=== PATIENT | male | born 1970 | race Caucasian/White ===

== ENCOUNTER 2020-01-22 00:31 | Outpatient (CLI) | payer OTHER, SELFPAY ==
[2020-01-22 20:45] LABS: SARS-CoV-2 RNA PCR Negative
== END 2020-01-22 00:32 | disposition home or self-care (01) ==
LOC: ANHCOVIDDT 00:31
PROVIDERS: Visit Provider Internal Medicine Gastroenterology
DX: Z01.812 Encounter for preprocedural laboratory examination (principal)
CPT/HCPCS: 87635; C9803; U0003

== ENCOUNTER 2020-01-25 01:43 | Day surgery (SDC) | payer OTHER, SELFPAY ==
[2020-01-15 14:30] VITALS: BMI 28.4
[2020-01-25 11:40] VITALS: BP 152/86; PULSE 91; RESP 16; TEMP 36.1; O2SAT 100
[2020-01-25] MEDS: LACTATED RINGERS 1,000 ML 150 ML IV CONT (11:43)
--- NOTE | 2020-01-25 11:50 | WPDANESEPPF ---
Anes - Initial Pre Proc Eval Procedure: Operation Date: 01/25/20 13:00 Proposed Procedures p Esophagogastroduodenoscopy&Screen Colon - Nikos Snyder MD Date/Time: 01/25/20 11:50 Surgeon: Nikos Snyder MD Pre Op Diagnosis: Abnormal Levels Serum enzymes Patient Data Age: 49 Gender: M Height: 6 ft Weight: 95.2 kg Last Vital Signs Temp 97.0 F L 01/25/20 11:40 Pulse 91 01/25/20 11:40 Resp 16 01/25/20 11:40 BP 152/86 H 01/25/20 11:40 Pulse Ox 100 01/25/20 11:40 Allergies Allergy/AdvReac Type Severity Reaction Status Date / Time No Known Allergies Allergy Verified 01/25/20 11:39 Home Medications Medication Instructions Recorded Confirmed Type atorvastatin 20 mg tablet 20 mg PO DAILY 12/21/19 01/15/20 History bupropion HCl 300 mg 24 hr tablet, 300 mg PO QAM 12/21/19 01/15/20 History extended release metoprolol succinate 100 mg 150 mg PO DAILY tablet 12/21/19 01/15/20 History tablet,extended release 24 hr hydrochlorothiazide 12.5 mg PO DAILY 01/15/20 01/15/20 History hydroxyzine HCl 50 mg PO PRN 01/15/20 01/15/20 History Patient hx anesthesia problems: none Family hx anesthesia problems: none [facility] Past Medical History Medical History (Updated 12/21/19 @ 15:09 by LEO BostonN-C) Elevated liver enzymes Encounter for screening colonoscopy HTN (hypertension) Overweight (BMI 25.0-29.9) Social History Social History (Updated 12/21/19 @ 13:46 by Jelena Ayala CMA) Smoking status: Former smoker Tobacco type: cigarettes Alcohol intake: current Drinks per week: 5 Substance use: never Substance use type: does not use Living arrangements: with roommate(s) Gender identity (if verbalized by the patient): Male Spiritual care concerns: No Anes - Eval Final PreProcedure Day of Procedure 01/25/20 11:50 Patient weight: obese Heart: regular rate and rhythm Lungs: clear to auscultation Airway: Mallampati scale class II Neurological: alert and oriented Last oral intake: >/= 8 hours ASA classification: III Emergent: no Anesthetic plan: proceed Anesthesia type and monitoring: general GIVS and standard monitoring Informed Consent: The patient's anesthetic plan and its attendant risks and benefits were discussed with the patient/family/POA. Questions were solicited and answers provided to the satisfaction of the patient/family/POA.
--- NOTE | 2020-01-25 12:08 | PM.HPGS ---
History of Present Illness History of Present Illness Consent: Risks, benefits, and alternatives have been discussed and questions answered. Patient agrees to proceed with procedure. Chief complaint: Abnormal Levels Serum enzymes Narrative: Edison Triplett is a 49 year old male with elevated liver enzymes, also needs screening colonoscopy Review of Systems Constitutional: Constitutional: Denies headache(s) and Denies weakness Eyes: Eyes: Denies blurry vision ENT: Reports Normal hearing present, Denies headache(s) and Denies neck pain Cardiovascular: Cardiovascular: Denies chest pain and Denies dyspnea Respiratory: Respiratory: Denies dyspnea Gastrointestinal: Gastrointestinal: Reports no additional gastrointestinal complaints Genitourinary: Genitourinary: Denies dysuria Musculoskeletal: Musculoskeletal: Denies neck pain Integumentary/Breasts: Skin/Breast: Denies dry skin Neurologic: Reports Normal hearing present, Denies headache(s) and Denies weakness Psychiatric: Psychiatric: Denies anxiety Endocrine: Endocrine: Denies change in body appearance Hematologic/Lymphatic: Hematologic/Lymphatic: Denies easy bleeding Allergic/Immunologic: Allergic/Immunologic: Denies urticaria PMFSH Past Medical History Medical History (Updated 12/21/19 @ 15:09 by MARGUERITE BostonC) Elevated liver enzymes Encounter for screening colonoscopy HTN (hypertension) Overweight (BMI 25.0-29.9) Social History Social History (Updated 12/21/19 @ 13:46 by Jelena Ayala CMA) Smoking status: Former smoker Tobacco type: cigarettes Alcohol intake: current Drinks per week: 5 Substance use: never Substance use type: does not use Living arrangements: with roommate(s) Gender identity (if verbalized by the patient): Male Spiritual care concerns: No Meds Home Medications and Allergies Home Medications Medication Instructions Recorded Confirmed Type atorvastatin 20 mg tablet 20 mg PO DAILY 12/21/19 01/15/20 History bupropion HCl 300 mg 24 hr tablet, 300 mg PO QAM 12/21/19 01/15/20 History extended release metoprolol succinate 100 mg 150 mg PO DAILY tablet 12/21/19 01/15/20 History tablet,extended release 24 hr hydrochlorothiazide 12.5 mg PO DAILY 01/15/20 01/15/20 History hydroxyzine HCl 50 mg PO PRN 01/15/20 01/15/20 History Allergies Allergy/AdvReac Type Severity Reaction Status Date / Time No Known Allergies Allergy Verified 01/25/20 11:39 Vital Signs Vital Signs - 24 hr 01/25/20 11:40 Temperature 97.0 F L Pulse Rate 91 Respiratory Rate 16 Blood Pressure 152/86 H Pulse Oximetry 100 Exam Const: General: comfortable and no acute distress HENMT: General nose exam: Normal nares present Eyes: General: appearance normal, both eyes and all related structures Neck: Neck: no JVD Resp: Auscultation: clear to auscultation bilaterally Cardio: Rate: regular rate Rhythm: regular rhythm GI: Inspection: non-distended GI Palp: Yes Soft to palpation Skin: General skin exam: normal color Neuro: General: gait normal Speech: normal speech Extrem: General: normal to inspection Psych: Mental Status: mental status grossly normal Assessment and Plan Assessment and plan (1) Elevated liver enzymes: Code(s): R74.8 - Abnormal levels of other serum enzymes Status: Acute Assessment and Plan: egd to assess if phg (2) Encounter for screening colonoscopy: Code(s): Z12.11 - Encounter for screening for malignant neoplasm of colon Status: Acute Assessment and Plan: colonoscopy
--- NOTE | 2020-01-25 12:21 | SUR.OPER ---
EGD STOPPED AT 1217, COLON STARTED AT 1222
[2020-01-25 12:33] VITALS: BP 120/82; PULSE 92; RESP 24; O2SAT 96
[2020-01-25 12:43] VITALS: BP 123/85; PULSE 92; RESP 24; O2SAT 97
[2020-01-25 12:53] VITALS: BP 129/92; PULSE 92; RESP 24; O2SAT 96
== END 2020-01-25 13:10 | disposition home or self-care (01) ==
PROVIDERS: PCP Family Medicine; Visit Provider Internal Medicine Gastroenterology
PROC: 0DJ08ZZ Inspection of Upper Intestinal Tract, Via Natural or Artificial Opening Endoscopic (ICD-10-PCS; CPT 43235; principal; 2020-01-25 13:00)
DX: Z12.11 Encounter for screening for malignant neoplasm of colon (principal); K64.8 Other hemorrhoids; K29.50 Unspecified chronic gastritis without bleeding; R74.8 Abnormal levels of other serum enzymes; I10 Essential (primary) hypertension; Z87.891 Personal history of nicotine dependence; E66.9 Obesity, unspecified; Z68.28 Body mass index [BMI] 28.0-28.9, adult
CPT/HCPCS: 45378; 43239; 88305; J2704; J7120

== ENCOUNTER 2021-09-01 12:16 | Outpatient (CLI) | payer OTHER, SELFPAY ==
--- NOTE | 2021-09-01 13:13 | ECG_ITS ---
Measurements Intervals [place] Rate: 72 P: 38 MN: 182 QRS: 34 QRSD: 87 T: 11 QT: 385 QTc: 423 Interpretive Statements SINUS RHYTHM NORMAL ECG Electronically Signed On 09-01-2021 13:32:40 CDT by Rashawn Kramer D.O.
--- NOTE | 2021-09-01 13:30 | ECHO_ITS ---
Patient Info Name: Edison Triplett Age: 51 years : 1970 Gender: Male Ht: 72 in Wt: 215 lbs BSA: 2.25 m2 HR: 69 bpm BP: 144 / 109 mmHg Technical Quality: Good Exam Date: 09/01/2021 12:34 PM Exam Location: [facility] Patient Status: Outpatient Admit Date: 09/01/2021 Staff Ordering Physician: AnatoliyFrancois MD Clinical Recruiter: Adiel Healy RDCS, RT Attending Provider: AntioneFrancois MD Exam Type: CA echo doppler color flow Study Info Indications R42 - Dizziness and giddiness Complete two-dimensional, color flow and Doppler transthoracic echocardiogram is performed. Strain analysis performed. Summary 1. Complete two-dimensional, color flow and Doppler transthoracic echocardiogram is performed. 2. Left ventricular chamber dimension is mildly enlarged. 3. Left ventricular systolic function is normal, estimated at 55-60%. 4. The left ventricular diastolic function is normal. 5. E/e' 6 is not elevated. 6. Global longitudinal strain is abnormal at -15.7%. Left Ventricle E/e' 6 is not elevated. Global longitudinal strain is abnormal at -15.7%. Left ventricular chamber dimension is mildly enlarged. Left ventricular systolic function is normal, estimated at 55-60%. The left ventricular diastolic function is normal. Right Ventricle Right ventricular systolic function is normal at 2.3 cm. Right ventricular chamber dimension is normal. Left Atria Left atrial chamber dimension is normal. Right Atria Right atrial chamber dimension is normal. Aortic Valve The aortic valve is trileaflet. There is no aortic valve stenosis. There is no aortic valve regurgitation. Pulmonic Valve There is no pulmonic regurgitation. Mitral Valve There is no mitral valve stenosis. There is no mitral valve regurgitation. Tricuspid Valve There is no tricuspid valve regurgitation. Pericardium/Pleural There is no pericardial effusion. Inferior Vena Cava Normal inferior vena cava with >50% collapse upon inspiration consistent with normal right atrial pressure, 5 mmHg. Aorta The aortic root size at the sinus of Valsalva is normal. Left Ventricular Outflow Tract Name Value Normal LVOT 2D LVOT Diameter 2.2 cm LVOT Doppler LVOT Peak Velocity 102 cm/s LVOT Peak Gradient 4 mmHg LVOT Mean Gradient 2 mmHg LVOT VTI 22 cm LVOT VTI/AV VTI Ratio 1.0 LVOT Stroke Volume 84 ml Mitral Valve Name Value Normal MV Doppler MV Decel Brooks 290 cm/s2 MV PHT 59 ms MV Area (PHT) 3.7 cm2 4.0-5.0 MV Diastolic Function MV E Peak Velocit
== END 2021-09-01 12:17 | disposition home or self-care (01) ==
LOC: CHSIMG 12:20
PROVIDERS: PCP Family Medicine; Visit Provider Family Medicine
DX: R42 Dizziness and giddiness (principal); R55 Syncope and collapse
CPT/HCPCS: 93005; 93306

== ENCOUNTER 2021-09-01 13:29 | Emergency (ER) | payer OTHER, SELFPAY ==
[2021-09-01 13:40] VITALS: BP 150/95; PULSE 70; RESP 18; TEMP 36.3; O2SAT 99
--- NOTE | 2021-09-01 13:46 | ED.SKABFB ---
HPI - Skin/Abscess/Foreign Bdy General Chief complaint: Skin/Abscess/Foreign Body Stated complaint: wasp sting on R hand, swelling in R hand and lip Time Seen by Provider: 09/01/21 13:46 Source: patient Mode of arrival: ambulatory History of Present Illness HPI narrative: [age] year old male with a history of hypertension, dyslipidemia got bit by a wasp in the right hand little finger. He has developed progressive swelling of the finger the hand and the distal forearm. No pain or itching. He also got bit on the lower lip following which he had swelling of the lower lip. No itching or pain. No shortness of breath, abdominal pain, wheezing or throat tightness. No other rash elsewhere. patient had transient dizziness a few days ago for which he got an EKG and an echocardiogram. He has had an unremarkable blood work. He is due to get a stress test for his heart. MD complaint: insect bite/sting Onset (ago): day(s) ( One day ago) Tetanus up to date: yes Location: face and RUE Severity: mild Quality: other ( no pain Or pruritus) Relieving factors: none Exacerbating factors: none Context: none Associated symptoms: denies other symptoms Treatments prior to arrival: none Related Data Home Medications Medication Instructions Recorded Confirmed atorvastatin 20 mg tablet 20 mg PO DAILY 12/21/19 09/01/21 metoprolol succinate 100 mg 150 mg PO DAILY 12/21/19 09/01/21 tablet,extended release 24 hr Allergies Allergy/AdvReac Type Severity Reaction Status Date / Time No Known Allergies Allergy Verified 09/01/21 13:47 Review of Systems Review of Systems: All systems reviewed & are unremarkable except as noted in HPI and below Constitutional: Constitutional: Reports as per HPI and Reports no additional constitutional complaints Eyes: Eyes: Reports as per HPI and Reports no additional eye complaints ENT: Reports system reviewed and no additional complaints, except as documented and Reports as per HPI Cardiovascular: Cardiovascular: Reports as per HPI and Reports no additional cardiovascular complaints Respiratory: Respiratory: Reports as per HPI and Reports no additional respiratory complaints Gastrointestinal: Gastrointestinal: Reports as per HPI and Reports no additional gastrointestinal complaints Genitourinary: Genitourinary: Reports no additional male genitourinary complaints and Reports as per HPI Musculoskeletal: Musculoskeletal: Reports no additional musculoskeletal complaints and Reports as per HPI Integumentary/Breasts: Comments: Swelling of his right hand little finger, right hand and distal forearm. No erythema. Neurologic: Reports system reviewed and no additional complaints, except as documented and Reports as per HPI Psychiatric: Psychiatric: Reports no additional psychiatric complaints and Reports as per HPI Endocrine: Endocrine: Reports no additional endocrine complaints and Reports as per HPI Hematologic/Lymphatic: Hematologic/Lymphatic: Reports no additional hematologic/lymphatic complaints and Reports as per HPI Allergic/Immunologic: Allergic/Immunologic: Reports no additional allergic/immunologic complaints and Reports as per HPI PMF Past Medical History Medical History Elevated liver enzymes Encounter for screening colonoscopy HTN (hypertension) Overweight (BMI 25.0-29.9) Social History Social History (Updated 12/21/19 @ 13:[address] [facility]) Smoking status: Former smoker Tobacco type: cigarettes Alcohol intake: current Drinks per week: 5 Substance use: never Substance use type: does not use Gender identity (if verbalized by the patient): Male Spiritual care concerns: No Exam Const: General: healthy appearing Nutritional Appearance: well nourished HENMT: Head: normal to inspection Ears: external ears normal General nose exam: Normal external nose present Face and sinus: normal f
[2021-09-01] MEDS: methylPREDNISolone SOD SUCC 125 MG VIAL IM (14:19)
[2021-09-01] MEDS: diphenhydrAMINE HCl CAP 25 MG CAPSULE PO (14:19)
[2021-09-01 14:24] VITALS: BP 148/88; PULSE 65; RESP 16; TEMP 36.8; O2SAT 99
== END 2021-09-01 14:25 | disposition home or self-care (01) ==
PROVIDERS: Emergency Provider Internal Medicine Critical Care Medicine; PCP Family Medicine
DX: L23.89 Allergic contact dermatitis due to other agents (principal)
CPT/HCPCS: 96372; 99283; A9270; J2930

== ENCOUNTER 2021-09-22 08:22 | Outpatient (CLI) | payer OTHER, SELFPAY ==
--- NOTE | 2021-09-22 08:30 | EST_ITS ---
Patient Info Name: Edison Triplett Age: 51 years : 1970 Gender: Male Ht: 72 in Wt: 210 lbs BSA: 2.22 m2 HR: 75 bpm BP: 150 / 103 mmHg Heart Rhythm: Sinus Rhythm Technical Quality: Good Exam Date: 09/22/2021 8:42 AM Exam Location: [facility] Patient Status: Outpatient Admit Date: 09/22/2021 Staff Ordering Physician: Anatoliy, Francois PERRY Attending Provider: Anatoliy, Francois PERRY Exercise Technologist: Shelia Gomez CRT Exercise Physician: Emily Florian CEP Exam Type: CA stress test treadmill Study Info Indications dizziness - History/Risk Factors Hypertension: Yes History/Risk Factors Hypertension. Summary 1. 1. Negative Francois exercise stress test for ischemic ST changes by ECG criteria. However, patient achieved only 75% MPHR for age group which reduces sensitivity of the test. 2. 2. Reduced functional capacity, achieving 7 METs of workload. 3. 3. Baseline hypertension. 4. 4. Appropriate HR response to exercise. 5. 5. Appropriate HR recovery at 1 minute post exercise. 6. 6. No imaging with stress testing. Protocol: Francois Stress ECG Details Stage: REST Duration (min): 4 min : 28 sec Speed (mph): 0.0 Grade (%): 0 HR (bpm): 74 SBP (mmHg): 150 DBP (mmHg): 103 METS: --- Stage: REST Duration (min): 5 min : 39 sec Speed (mph): 0.0 Grade (%): 0 HR (bpm): 87 SBP (mmHg): 150 DBP (mmHg): 103 METS: --- Stage: STAGE 1 Duration (min): 1 min : 0 sec Speed (mph): 1.7 Grade (%): 10 HR (bpm): 92 SBP (mmHg): 150 DBP (mmHg): 103 METS: --- Stage: STAGE 1 Duration (min): 2 min : 0 sec Speed (mph): 1.7 Grade (%): 10 HR (bpm): 96 SBP (mmHg): 150 DBP (mmHg): 103 METS: --- Stage: STAGE 1 Duration (min): 3 min : 0 sec Speed (mph): 1.7 Grade (%): 10 HR (bpm): 100 SBP (mmHg): 184 DBP (mmHg): 98 METS: --- Stage: STAGE 2 Duration (min): 1 min : 0 sec Speed (mph): 2.5 Grade (%): 12 HR (bpm): 109 SBP (mmHg): 184 DBP (mmHg): 98 METS: --- Stage: STAGE 2 Duration (min): 2 min : 0 sec Speed (mph): 2.5 Grade (%): 12 HR (bpm): 117 SBP (mmHg): 184 DBP (mmHg): 98 METS: --- Stage: STAGE 2 Duration (min): 3 min : 0 sec Speed (mph): 2.5 Grade (%): 12 HR (bpm): 125 SBP (mmHg): 195 DBP (mmHg): 99 METS: --- Stage: STAGE 3 Duration (min): 0 min : 7 sec Speed (mph): 3.4 Grade (%): 14 HR (bpm): 126 SBP (mmHg): 195 DBP (mmHg): 99 METS: --- Stage: RECOVERY Duration (min): 0 min : 52 sec Speed (mph): 0.0 Grade (%): 0 HR (bpm): 117 SBP (mmHg): 195 DBP (mmHg): 99 METS: --- Stage: RECOVERY Duration (min): 1 min : 52 sec Speed (mph): 0.0 Grade (%): 0 HR (bpm): 100 SBP (mmHg): 186 DBP (mmHg): 96 METS: --- Stage: RECOVERY Duration (min): 2 min : 52 sec Sp
== END 2021-09-22 08:23 | disposition home or self-care (01) ==
LOC: CHSCARD 08:24
PROVIDERS: PCP Family Medicine; Visit Provider Family Medicine
DX: R55 Syncope and collapse (principal)
CPT/HCPCS: 93017

== ENCOUNTER 2022-06-23 14:46 | Outpatient (CLI) | payer OTHER, SELFPAY ==
--- NOTE | ~2022-06-23 | CT_ITS ---
EXAMINATION:CT lung screening DATE: 06/23/2022 16:00 INDICATION: Personal history of nicotine dependence. Smoker who quit 3 years ago with 30 pack year hi story. TECHNIQUE: Computed tomography (CT) of the chest was performed without intravenous contrast. Automate d exposure control and iterative reconstruction technique were employed. The dose-length product (DLP ) was 172.30 mGy-cm. COMPARISON: None. FINDINGS: There is mild emphysema. No pleural effusion. There is mild bilateral gynecomastia. The hea rt size is normal. There are coronary artery calcifications. No pericardial effusion. There is diffus e hepatic steatosis. There is a 2.2 cm cyst in left kidney. There is mild thoracic spondylosis. IMPRESSION: 1. Lung-RADS category 1: Negative. Continue annual screening with noncontrast low-dose chest CT in 12 months. Reviewed, dictated and finalized at location A. IMPRESSION: 1. Lung-RADS category 1: Negative. Continue annual screening with noncontrast l ow-dose chest CT in 12 months.
== END 2022-06-23 14:47 | disposition home or self-care (01) ==
LOC: CHSIMG 14:47
PROVIDERS: PCP Family Medicine; Visit Provider Family Medicine
DX: Z12.2 Encounter for screening for malignant neoplasm of respiratory organs (principal); Z87.891 Personal history of nicotine dependence
CPT/HCPCS: 71271

== ENCOUNTER 2022-07-10 21:01 | Inpatient (IN) | payer OTHER, SELFPAY ==
[2022-07-10] VITALS (8 sets, daily range): BP systolic 138–159; BP diastolic 80–102; PULSE 74–92; RESP 22–30; TEMP 37.2; O2SAT 96–100
--- NOTE | ~2022-07-10 | CT_ITS ---
EXAMINATION: CT abdomen pelvis w con DATE: 07/10/2022 22:15 INDICATION: Abdominal pain with bloating TECHNIQUE: Computed tomography (CT) of the abdomen and pelvis was performed with 100 mL Omnipaque-350 intravenous contrast. Automated exposure control and iterative reconstruction technique were employe d. The dose-length product was 680.24 mGy-cm. COMPARISON: Chest CT dated 06/23/2022 FINDINGS: Lung bases are clear. Heart size is normal. No pericardial or pleural effusion. Heterogeneous pattern of diffuse hepatic steatosis some focal sparing along the gallbladder fossa. Gallbladder, spleen, ri ght adrenal gland and kidney are normal. 1.2 cm left adrenal adenoma with characteristic low-attenuat ion on prior chest CT. There is inflammatory stranding surrounding the head and uncinate process of t he pancreas without discrete peripancreatic fluid collections, abscess or parenchymal necrosis consis tent with acute interstitial pancreatitis. Bowels including the appendix are normal. Bladder is kendall l. No free intraperitoneal gas or fluid. No pathologically enlarged abdominal or pelvic lymphadenopat hy. Mild scattered degenerative skeletal changes in the spine and pelvis. IMPRESSION: 1. Acute interstitial pancreatitis. 2. Diffuse hepatic steatosis. Reviewed, dictated and finalized at location A.
--- NOTE | 2022-07-10 21:06 | ED.ABDPAIN ---
HPI - Abdominal Pain General Chief Complaint: Abdominal Pain Stated Complaint: Abdominal Pain/Nausea Time Seen by Provider: 07/10/22 21:06 History of Present Illness HPI narrative: 52-year-old male patient with a known history of hypertension and alcohol dependence where he drinks a bottle of wine every day is in the ER with complaints of abdominal pain that started around noon today. He localizes the pain to the upper abdomen and describes it as constant the sharp pain with bloating as well as nausea and vomiting. He states that he has had multiple episodes of vomiting. He had 1 small bowel movement this morning but no diarrhea since then. Denies any fever or chills. Denies any urinary symptoms. The pain is localized and does not radiate into the back or to the groin area. He has had 1 drink today and he denies ever having had alcohol withdrawal symptoms. Patient admits to smoking a couple of cigars today and does smoke periodically. He also uses weed periodically but none today. Related Data Home Medications Medication Instructions Recorded Confirmed atorvastatin 20 mg tablet 20 mg PO DAILY 12/21/19 07/10/22 metoprolol succinate 100 mg 100 mg PO DAILY 12/21/19 07/10/22 tablet,extended release 24 hr albuterol sulfate 90 mcg/actuation 2 puff inhalation QID PRN Wheezing 07/10/22 07/10/22 aerosol inhaler amlodipine 5 mg tablet 5 mg PO DAILY 07/10/22 07/10/22 metoprolol succinate 50 mg 50 mg PO DAILY 07/10/22 07/10/22 tablet,extended release 24 hr Allergies Allergy/AdvReac Type Severity Reaction Status Date / Time No Known Allergies Allergy Verified 07/10/22 21:23 Review of Systems Review of Systems: All systems reviewed & are unremarkable except as noted in HPI and below PMFSH Past Medical History Medical History Elevated liver enzymes Encounter for screening colonoscopy HTN (hypertension) Overweight (BMI 25.0-29.9) Social History Social History Smoking status: Former smoker Tobacco type: cigarettes Alcohol intake: current Drinks per week: 5 Substance use: never Substance use type: does not use Living arrangements: with roommate(s) Occupation/Education: unemployed Gender identity (if verbalized by the patient): Male Spiritual care concerns: No Exam Narrative: Alert male patient who appears uncomfortable because of pain. His vital signs are stable. He is afebrile . HEENT: flushed face. Normocephalic. Pupils midsize equal and reactive to light. EOMs are intact. Oral mucous membranes are dry . Neck is supple. Chest wall is nontender. Breath sounds are audible bilaterally. Heart tones are regular. Abdomen is obese and soft with tenderness in the upper abdomen without any guarding rigidity or rebound. No palpable masses. No organomegaly. Bowel sounds are active. Rectal examination has been deferred. Extremities are atraumatic. Skin is warm and dry color is normal. Neurologic examination is grossly normal. Patient is extremely anxious and tremulous Course Course Emergency Course: 52-year-old male patient with abdominal pain since noon yesterday. History of alcohol intake daily patient states that he drinks a bottle of wine on every day basis. Labs have been reviewed. Patient has a normal white cell count. Comprehensive metabolic profile is essentially normal with exception of liver enzymes being elevated. Lipase is greater than 1500. CT abdomen and pelvis with contrast has been reported as positive for interstitial pancreatitis. The patient has been treated with the lorazepam as well as a banana bag and Zofran. He had no relief with Protonix or Toradol. He has been given morphine 2 mg and he is resting comfortably. Patient is aware of the labs and the diagnostic workup and need for admission. I did discuss the patient with nurse practitioner
--- NOTE | 2022-07-10 21:14 | ECG_ITS ---
Measurements Intervals [place] Rate: 84 P: 19 VA: 174 QRS: 18 QRSD: 90 T: 15 QT: 363 QTc: 430 Interpretive Statements SINUS RHYTHM LOW QRS VOLTAGE IN PRECORDIAL LEADS BORDERLINE T WAVE ABNORMALITY- ANTEROLAT/INF LEADS BORDERLINE ECG COMPARED TO ECG 09/01/2021 13:26:00 NO SIGNIFICANT CHANGES Electronically Signed On 07-10-2022 22:22:10 CDT by Rashawn Kramer D.O.
[2022-07-10] MEDS: ONDANSETRON INJ 4 MG/2 ML VIAL IV PUSH (21:25)
[2022-07-10 21:26] LABS: Basophils Absolute Auto 0.07 K/mm3 (0.00-0.10); Basophils Percent Auto 0.7 % (0.0-1.0); Hematocrit 46.2 % (40.0-54.0); Hemoglobin 16.2 g/dL (14.0-18.0); Immature Granulocyte Absolute 0.06 K/mm3 (0.00-0.00); Immature Granulocyte Percent A 0.6 % (0.0-0.0); Lymphocytes Absolute Auto 0.99 K/mm3 (1.10-4.50); Lymphocytes Percent Auto 9.6 % (18.0-42.0); Mean Corpuscular HGB Conc 35.1 g/dL (32.0-36.0); Mean Corpuscular Hemoglobin 37.6 pg (27.0-31.0); Mean Corpuscular Volume 107.2 fL (78.0-102.0); Mean Platelet Volume 9.7 fl (8.7-11.0); Monocytes Absolute Auto 1.16 K/mm3 (0.10-0.90); Monocytes Percent Auto 11.2 % (2.0-11.0); Neutrophils Absolute Auto 8.1 K/mm3 (1.7-7.2); Neutrophils Percent Auto 77.9 % (50.0-70.0); Platelet Count Result 177 K/mm3 (150-420); Red Blood Count 4.31 M/mm3 (4.70-6.10); Red Cell Distribution Width 12.9 % (11.6-14.4); White Blood Count 10.3 K/mm3 (4.8-10.8)
[2022-07-10] MEDS: LORazepam INJ (*CRX) 2 MG/ML VIAL 0.5 MG IV PUSH (21:26)
[2022-07-10] MEDS: PANTOPRAZOLE SODIUM IV 40 MG VIAL IV PUSH (21:28)
[2022-07-10 21:47] LABS: Alanine Aminotransferase 82 U/L (16-63); Albumin Level 3.9 g/dL (3.4-5.0); Alkaline Phosphatase 122 U/L (46-116); Anion Gap 17 mmol/L (8-16); Aspartate Amino Transferase 119 U/L (15-37); Bilirubin Direct 0.3 mg/dL (0-0.2); Blood Urea Nitrogen 10 mg/dL (7-18); Calcium 9.6 mg/dL (8.5-10.1); Carbon Dioxide 20 mmol/L (21-32); Chloride 98 mmol/L (98-108); Estimated CRCL calculation 85 ml/min; Estimated Glomerular Filt Rate > 60; Glucose 105 mg/dL (70-99); Osmolality Calculated 279 mOsm/kg (285-295); Potassium 3.7 mmol/L (3.5-5.1); Sodium 135 mmol/L (136-145); Troponin I 5.1 ng/L (0.00-60.4)
[2022-07-10 21:55] LABS: Lipase > 1500 U/L (16-77)
[2022-07-10] MEDS: KETOROLAC 30 MG/ML VIAL (*BKC) IV PUSH (21:57)
[2022-07-10] MEDS: THIAMINE HCL INJ 100 MG, FOLIC ACID 1 MG, MULTIVITAMINS-12 INJ 10 ML, MAGNESIUM SULFATE... IV CONT (22:28)
--- NOTE | 2022-07-10 22:30 | PC.NURSE ---
PT returned from CT. MVI infusion initiated. Pt reports no improvement in pain. ERP aware will order pain medication. ERP also states to change MVI bag to bolus infusion rate.
[2022-07-10] MEDS: MORPHINE SULFATE (*CRX) 2 MG/ML INJ IV PUSH (22:44)
--- NOTE | 2022-07-10 23:05 | PC.NURSE ---
Pt has been accepted for admission. Inpatient unit aware. Will return call with bed assignment.
[2022-07-10] MEDS: MORPHINE SULFATE (*CRX) 4 MG/ML INJ IV PUSH (23:42)
[2022-07-11] VITALS: BP 138/89; PULSE 81; RESP 21; TEMP 36.5; O2SAT 94
[2022-07-11 00:02] VITALS: BMI 27.1
--- NOTE | 2022-07-11 00:09 | ADMGEN ---
This patient, Edison Triplett, was admitted to 2nd Floor Room 205-2. Patient/family oriented to hospital policies and general routines including ID bracelet, bed and alarms, visiting hours, pain management, procedures, bathroom and other care routines, personal items, smoking policy, room service/diet, and visiting hours. Information on how to activate the Rapid Response Team has been discussed. Patient/Family are encouraged to report perceived risks to care and to ask questions if they do not understand what they are told or what they should do.
[2022-07-11] MEDS: LACTATED RINGERS 1,000 ML 100 ML IV CONT ×3 (00:27→19:56)
[2022-07-11] MEDS: LORazepam INJ (*CRX) 2 MG/ML VIAL 0.5 MG IV PUSH ×2 (00:39→22:39)
[2022-07-11 02:22] LABS: Appearance Urine Clear (Clear); Bilirubin Urine Negative (Negative); Blood Urine Negative (Negative); Color Urine Yellow (Yellow); Glucose Urine UA 2+ (Negative); Ketones Urine 1+ (Negative); Leukocyte Esterase Ur Negative LEU/UL (Negative); Nitrate Urine Negative (Negative); Protein Urine Trace (Negative); Specific Grav Ur <= 1.005 (1.010-1.020); Urobilinogen Urine 0.2 mg/dL (0.2-1.0); pH Urine 6.5 (5.0-8.0)
[2022-07-11 02:33] LABS: Add Urine Microscopic? YES; Bacteria Urine None seen /hpf; RBC Urine 0-2 /hpf (0-2); Squamous Epithelial Cell Urine None seen /hpf (Few); WBC Urine 0-3 /hpf (0-3)
[2022-07-11] MEDS: MORPHINE SULFATE (*CRX) 2 MG/ML INJ IV PUSH (02:45)
--- NOTE | 2022-07-11 02:55 | PC.NURSE ---
This RN asked about the pt's diet at home again; pt stated that he and his significant other are on the keto diet, and he was losing weight. Weight loss is at a standstill, but their diet at home is unchanged.
--- NOTE | 2022-07-11 03:08 | PC.NURSE ---
This RN sent a message to Mani Pulido NP to notify her that pt's pain is consistently high despite receiving several doses of the IVP morphine. This RN inquired about possibly increasing dosage or switching to another medication to better manage pt's pain. Awaiting reply to see if new orders will/will not be placed.
[2022-07-11 05:50] LABS: Basophils Absolute Auto 0.05 K/mm3 (0.00-0.10); Basophils Percent Auto 0.7 % (0.0-1.0); Hematocrit 39.6 % (40.0-54.0); Hemoglobin 13.8 g/dL (14.0-18.0); Immature Granulocyte Absolute 0.06 K/mm3 (0.00-0.00); Immature Granulocyte Percent A 0.8 % (0.0-0.0); Lymphocytes Absolute Auto 0.97 K/mm3 (1.10-4.50); Mean Corpuscular HGB Conc 34.8 g/dL (32.0-36.0); Mean Corpuscular Hemoglobin 37.6 pg (27.0-31.0); Mean Corpuscular Volume 107.9 fL (78.0-102.0); Monocytes Percent Auto 10.8 % (2.0-11.0); Neutrophils Absolute Auto 5.6 K/mm3 (1.7-7.2); Neutrophils Percent Auto 74.7 % (50.0-70.0); Platelet Count Result 150 K/mm3 (150-420); Red Blood Count 3.67 M/mm3 (4.70-6.10); White Blood Count 7.4 K/mm3 (4.8-10.8)
[2022-07-11 06:06] LABS: Alanine Aminotransferase 68 U/L (16-63); Alkaline Phosphatase 95 U/L (46-116); Anion Gap 6 mmol/L (8-16); Aspartate Amino Transferase 67 U/L (15-37); Bilirubin,Total 0.8 mg/dL (0.00-1.00); Blood Urea Nitrogen 11 mg/dL (7-18); Calcium 8.8 mg/dL (8.5-10.1); Carbon Dioxide 28 mmol/L (21-32); Chloride 102 mmol/L (98-108); Estimated CRCL calculation 87 ml/min; Estimated Glomerular Filt Rate > 60; Glucose 102 mg/dL (70-99); Osmolality Calculated 281 mOsm/kg (285-295); Potassium 4.1 mmol/L (3.5-5.1); Sodium 136 mmol/L (136-145); Total Protein 7.1 g/dL (6.4-8.2)
--- NOTE | 2022-07-11 06:10 | PC.NURSE ---
Sherry Pulido NP, returned text regarding pt's pain medication. New orders received and noted.
[2022-07-11 06:28] LABS: Lipase 2112 U/L (16-77)
[2022-07-11] MEDS: HYDROmorphone HCL INJ (*CRX) 2 MG/ML VIAL 1 MG IV PUSH ×5 (06:29→22:39)
[2022-07-11 08:00] VITALS: BP 145/90; PULSE 74; RESP 20; TEMP 36.1; O2SAT 97
[2022-07-11] MEDS: PANTOPRAZOLE SODIUM IV 40 MG VIAL IV PUSH (08:43)
[2022-07-11 09:25] VITALS: PULSE 74
[2022-07-11] MEDS: amLODIPine BESYLATE 5 MG TABLET PO (09:25)
[2022-07-11] MEDS: METOPROLOL SUCCINATE EXT REL 50 MG TABCR 150 MG PO (09:25)
--- NOTE | 2022-07-11 09:39 | PM.IMHP ---
H&P: HPI History of Present Illness Date/Time: 07/11/22 09:39 Chief Complaint: abdominal pain Narrative: this is a 52-year-old male presented to emergency department with complaints of abdominal pain that started yesterday morning. Patient has a past medical history of elevated liver enzymes hypertension and obesity. Patient does note that he drinks a bottle of wine daily. Notes that he started to experience abdominal pain and nausea vomiting in the a.m. attempted to use the restroom and had a small bowel movement patient notes that while today his pain increased he became diaphoretic. Patient is being admitted today for pancreatitis. The patient denies SOB, CP, palpitation, extremity numbness, lightheadedness, dizziness, constipation, diarrhea, chills, or fever. He continues to have abdominal pain and is unable to tolerate any food Review of Systems Review of Systems: All systems reviewed & are unremarkable except as noted in HPI and below PMFSH Past Medical History Medical History Elevated liver enzymes Encounter for screening colonoscopy HTN (hypertension) Overweight (BMI 25.0-29.9) Social History Social History Smoking status: Current every day smoker Tobacco type: cigars Alcohol intake: current Drinks per week: 21 Substance use: never Substance use type: marijuana and prescription drug Last use: 07/09/2022 Lack of Transportation: No Lack of Food: Never True Current Housing: I Have Housing Concerned About Future Housing: No Difficulty Paying Gas/Electric Bills: No Difficulty Paying for Meds: No Currently Unemployed: No Education: Trade/Vocational Certificate Difficulty w/ Childcare or Family Care: No Living arrangements: with roommate(s) Occupation/Education: unemployed Gender identity (if verbalized by the patient): Male Spiritual care concerns: No Meds Home Medications and Allergies Home Medications Medication Instructions Recorded Confirmed Type atorvastatin 20 mg tablet 20 mg PO DAILY 12/21/19 07/10/22 History metoprolol succinate 100 mg 100 mg PO DAILY 12/21/19 07/10/22 History tablet,extended release 24 hr albuterol sulfate 90 mcg/actuation 2 puff inhalation QID PRN Wheezing 07/10/22 07/10/22 History aerosol inhaler amlodipine 5 mg tablet 5 mg PO DAILY 07/10/22 07/10/22 History metoprolol succinate 50 mg 50 mg PO DAILY 07/10/22 07/10/22 History tablet,extended release 24 hr Allergies Allergy/AdvReac Type Severity Reaction Status Date / Time No Known Allergies Allergy Verified 07/10/22 21:23 Vital Signs Vital Signs - 24 hr 07/10/22 21:10 07/10/22 21:08 07/10/22 21:30 Temperature 37.2 C Pulse Rate 87 92 87 Respiratory Rate 30 H 28 H 27 H Blood Pressure 159/102 H 148/101 H Pulse Oximetry 96 100 99 Oxygen Delivery Room Air 07/10/22 21:45 07/10/22 22:13 07/10/22 22:45 Temperature Pulse Rate 87 81 87 Respiratory Rate 25 H 24 H 24 H Blood Pressure 152/102 H 157/93 H Pulse Oximetry 98 98 100 Oxygen Delivery 07/10/22 23:01 07/10/22 23:30 07/11/22 00:00 Temperature 36.5 C Pulse Rate 83 74 81 Respiratory Rate 26 H 22 H 21 H Blood Pressure 138/80 138/89 Pulse Oximetry 97 96 94 Oxygen Delivery Room Air 07/11/22 09:25 Temperature Pulse Rate 74 Respiratory Rate Blood Pressure Pulse Oximetry Oxygen Delivery Exam Narrative: GENERAL: This is a well-nourished, well-developed patient, in no apparent distress. HEAD: normocephalic, atraumatic. EYES: PERRL. Sclera clear/white. Vision is grossly intact. EARS: External ears normal, auditory canals clear and without drainage, TMs normal without perforation. Hearing grossly intact. NOSE: External nose normal with no obvious nasal discharge, nares without redness, no rhinorrhea. THROAT: Mucous membranes moist, posterior pharynx clear. NECK: Neck
[2022-07-11 16:00] VITALS: BP 131/85; PULSE 85; RESP 16; TEMP 36.2; O2SAT 97
[2022-07-11] MEDS: ONDANSETRON INJ 4 MG/2 ML VIAL IV PUSH ×2 (16:38→22:39)
[2022-07-11 23:02] VITALS: BP 119/76; PULSE 60; RESP 15; TEMP 36.3; O2SAT 98
--- NOTE | 2022-07-11 23:26 | PC.NURSE ---
Edison was feeling anxious about being in the hospital stay and w/his health. This RN sat, and talked w/the pt about the pt's anxiety triggers and what he has done in the past to help cope w/the triggers. Pt stated music helps quite a bit and this RN educated the pt on a few different techniques that may also help. The pt verbalized a desire to stay in the hospital for at least 2 more nights. This RN communicated to the pt that depending on his lab values and how he progresses will determine if the INFANTRYMAN deems it necessary for the pt to stay. This RN continued to have a cathartic conversation w/the pt about the pt's drinking habits, and slowly decreasing his intake. Pt verbalized appreciation for the conversation and support. Call light w/in reach; side railsx2; bed in lowest position for pt safety. Door cracked open per pt request to ease some anxiety.
[2022-07-12] MEDS: HYDROmorphone HCL INJ (*CRX) 2 MG/ML VIAL 1 MG IV PUSH ×3 (02:41→11:30)
--- NOTE | 2022-07-12 02:46 | PC.NURSE ---
Pt called nurses station for assistance. This RN entered the room to find pt dry heaving and coughing up phlegm. Pt stated that he woke up and felt fine, but the pain came on extremely fast and he started to feel nauseous. Pt was given prn pain med to help ease pain. This RN informed the pt that if he needed further assistance to ring the nurses station after pt stated he would be okay. Pt still dry heaving.
[2022-07-12 05:18] LABS: Hematocrit 39.4 % (40.0-54.0); Hemoglobin 13.5 g/dL (14.0-18.0); Mean Corpuscular HGB Conc 34.3 g/dL (32.0-36.0); Mean Corpuscular Hemoglobin 37.4 pg (27.0-31.0); Mean Corpuscular Volume 109.1 fL (78.0-102.0); Mean Platelet Volume 9.1 fl (8.7-11.0); Platelet Count Result 135 K/mm3 (150-420); Red Blood Count 3.61 M/mm3 (4.70-6.10); Red Cell Distribution Width 12.6 % (11.6-14.4); White Blood Count 8.3 K/mm3 (4.8-10.8)
[2022-07-12 05:33] LABS: Alanine Aminotransferase 57 U/L (16-63); Albumin Level 3.1 g/dL (3.4-5.0); Alkaline Phosphatase 93 U/L (46-116); Anion Gap 9 mmol/L (8-16); Aspartate Amino Transferase 47 U/L (15-37); Bilirubin,Total 0.9 mg/dL (0.00-1.00); Blood Urea Nitrogen 8 mg/dL (7-18); Calcium 8.5 mg/dL (8.5-10.1); Carbon Dioxide 27 mmol/L (21-32); Chloride 95 mmol/L (98-108); Estimated CRCL calculation 101 ml/min; Estimated Glomerular Filt Rate > 60; Glucose 88 mg/dL (70-99); Lipase 112 U/L (16-77); Osmolality Calculated 269 mOsm/kg (285-295); Potassium 4.1 mmol/L (3.5-5.1); Sodium 131 mmol/L (136-145); Total Protein 6.6 g/dL (6.4-8.2)
[2022-07-12] MEDS: LACTATED RINGERS 1,000 ML 100 ML IV CONT (06:43)
[2022-07-12] MEDS: ONDANSETRON INJ 4 MG/2 ML VIAL IV PUSH (07:43)
[2022-07-12 08:00] VITALS: BP 137/87; PULSE 62; RESP 17; TEMP 36.5; O2SAT 96
[2022-07-12 08:56] VITALS: PULSE 62
[2022-07-12] MEDS: PANTOPRAZOLE SODIUM IV 40 MG VIAL IV PUSH (08:56)
[2022-07-12] MEDS: amLODIPine BESYLATE 5 MG TABLET PO (08:56)
[2022-07-12] MEDS: METOPROLOL SUCCINATE EXT REL 50 MG TABCR 150 MG PO (08:56)
--- NOTE | 2022-07-12 09:52 | PM.DS ---
DS: Admitting Diagnosis Discharge Date 07/12/2022 Admitting Diagnosis pancreatitis DS: Discharge Diagnosis Discharge Diagnosis (1) Acute pancreatitis: Code(s): K85.90 - Acute pancreatitis without necrosis or infection, unspecified Status: Acute Assessment and Plan: Possibly secondary to alcohol use l lipase >1500>2112>112 Patient able to tolerate meals (2) HTN (hypertension): Code(s): I10 - Essential (primary) hypertension Status: Acute (3) Overweight (BMI 25.0-29.9): Code(s): E66.3 - Overweight Status: Acute (4) Elevated liver enzymes: Code(s): R74.8 - Abnormal levels of other serum enzymes Status: Acute Assessment and Plan: liver enzymes trending down will continue to monitor DS: Summary Hospital Course Reason for hospitalization: Abdominal pain nausea vomiting Hospital Course: ?this is a 52-year-old male presented to emergency department with complaints of abdominal pain that started yesterday morning.? Patient has a past medical history of elevated liver enzymes hypertension and obesity.? Patient does note that he drinks a bottle of wine daily.? Notes that he started to experience abdominal pain and nausea vomiting in the a.m. attempted to use the restroom? and had? a small bowel movement patient notes that while today his pain increased he became diaphoretic.? Patient is being admitted today for pancreatitis. The patient denies SOB, CP, palpitation, extremity numbness, lightheadedness, dizziness, constipation, diarrhea, chills, or fever.? patient is able to tolerate all his meals. He agrees that he is ready for discharge. Time Spent with Patient Time attestation: Total time spent providing and/or coordinating discharge services: Exam Narrative: GENERAL: This is a well-nourished, well-developed patient, in no apparent distress. HEAD: normocephalic, atraumatic. EYES: PERRL. Sclera clear/white. Vision is grossly intact. EARS: External ears normal, auditory canals clear and without drainage, TMs normal without perforation. Hearing grossly intact. NOSE: External nose normal with no obvious nasal discharge, nares without redness, no rhinorrhea. THROAT: Mucous membranes moist, posterior pharynx clear. NECK: Neck supple, non-tender without lymphadenopathy, masses or thyromegaly. CARDIOVASCULAR: Regular rate and rhythm without murmurs, gallops, or rubs. RESPIRATORY: Clear to auscultation. Breath sounds equal bilaterally. No wheezes, rales, or rhonchi. GASTROINTESTINAL: Abdomen soft, tender in upper abd areBowel sounds are active. No hepato-splenomegaly, or palpable masses. No guarding. SKIN: warm, intact with no suspicious lesions or rash, good texture and turgor. NEURO: awake, alert, and oriented to person, place and time. There were no obvious focal neurologic abnormalities. EXTREMITIES: Normal range of motion. No edema. No calf tenderness. DS: Data Data Completed and Pending Labs on day of discharge: Labs from last 24 hours 07/12/22 05:13 WBC 8.3 RBC 3.61 L Hgb 13.5 L Hct 39.4 L MCV 109.1 H MCH 37.4 H MCHC 34.3 RDW 12.6 Plt Count 135 L MPV 9.1 Sodium 131 L Potassium 4.1 Chloride 95 L Carbon Dioxide 27 Anion Gap 9 BUN 8 Creatinine 0.83 Estim Creat Clear Calc 101 Estimated GFR > 60 Glucose 88 Calculated Osmolality 269 L Calcium 8.5 Total Bilirubin 0.9 AST 47 H ALT 57 Alkaline Phosphatase 93 Total Protein 6.6 Albumin 3.1 L Lipase 112 H Discharge Plan Discharge Attending physician on discharge: Magen Valentino Discharging Clinician: Mani Pulido Anticipated Discharge Date/Time: 07/12/22 09:51 Patient Disposition: Home, Self-Care Activity: as tolerated Diet: low sodium Discharge Instructions: Take medications as prescribed. Follow up with provider. When do I need to call the doctor? Signs of infection. These include a fever of 100.4?F (38?C) or
[2022-07-12] MEDS: METOCLOPRAMIDE HCL INJ 10 MG/2 ML VIAL IV PUSH ×3 (10:14→23:02)
--- NOTE | 2022-07-12 11:15 | PC.NURSE ---
Pt asking about discharging. He states that he does not want to eat lunch because he is nauseated. Asks if it is a requirement to eat before he leaves. I explained why we would like for him to eat and that I would ask the WHANAU SUPPORT WORKER about discharging without lunch.
--- NOTE | 2022-07-12 11:20 | PC.NURSE ---
Spoke with Mani SERRANO regarding pt's request to leave without eating. She stated that he could if he wanted.
--- NOTE | 2022-07-12 11:25 | PC.NURSE ---
Explained to patient that he could leave without eating and offered to give zofran prior to discontinuing his IV. Pt agreed to zofran and asked for pain medicine also.
[2022-07-12] MEDS: ONDANSETRON INJ 4 MG/2 ML VIAL 8 MG IV PUSH (11:30)
--- NOTE | 2022-07-12 11:30 | PC.NURSE ---
Returned to pt's room with zofran and dilaudid. Pt found standing at bedside vomiting into emesis bag. Pt was tearful and said he had spoke with his and his mother and he would like to dispute the discharge. Pt was assisted back into bed and ZACH Singleton was notified via text. Awaiting repose from ACCOUNT RESOLUTION SPECIALIST at this time.
[2022-07-12 16:00] VITALS: BP 139/97; PULSE 92; RESP 17; TEMP 36; O2SAT 99
[2022-07-12] MEDS: oxyCODONE/ACETAMINOPHEN (*CRX) 10-325 MG TABLET 1 TAB PO ×2 (17:06→22:58)
--- NOTE | 2022-07-12 18:44 | PC.NURSE ---
Update on status given to Sherry Pulido Hospitalist.
[2022-07-12] MEDS: LORazepam INJ (*CRX) 2 MG/ML VIAL 0.5 MG IV PUSH (22:57)
[2022-07-12 23:03] VITALS: BP 137/88; PULSE 66; RESP 16; TEMP 36.7; O2SAT 97
[2022-07-13] MEDS: METOCLOPRAMIDE HCL INJ 10 MG/2 ML VIAL IV PUSH (05:01)
[2022-07-13 05:21] LABS: Lipase 139 U/L (16-77)
[2022-07-13] MEDS: oxyCODONE/ACETAMINOPHEN (*CRX) 10-325 MG TABLET 1 TAB PO (06:40)
[2022-07-13 07:41] VITALS: BP 140/89; PULSE 74; RESP 16; TEMP 36.4; O2SAT 97
[2022-07-13 08:04] VITALS: PULSE 74
[2022-07-13] MEDS: PANTOPRAZOLE SODIUM IV 40 MG VIAL IV PUSH (08:04)
[2022-07-13] MEDS: METOPROLOL SUCCINATE EXT REL 50 MG TABCR 150 MG PO (08:04)
[2022-07-13] MEDS: amLODIPine BESYLATE 5 MG TABLET PO (08:04)
--- NOTE | 2022-07-13 08:19 | PM.DS ---
DS: Admitting Diagnosis Discharge Date 07/13/2022 Admitting Diagnosis pancreatitis DS: Discharge Diagnosis Discharge Diagnosis (1) Acute pancreatitis: Code(s): K85.90 - Acute pancreatitis without necrosis or infection, unspecified Status: Acute Assessment and Plan: Possibly secondary to alcohol use l lipase >1500>2112>112>139 Patient able to tolerate meals (2) HTN (hypertension): Code(s): I10 - Essential (primary) hypertension Status: Acute (3) Overweight (BMI 25.0-29.9): Code(s): E66.3 - Overweight Status: Acute (4) Elevated liver enzymes: Code(s): R74.8 - Abnormal levels of other serum enzymes Status: Acute Assessment and Plan: liver enzymes trending down will continue to monitor DS: Summary Hospital Course Reason for hospitalization: Abdominal pain nausea vomiting Hospital Course: ?this is a 52-year-old male presented to emergency department with complaints of abdominal pain that started yesterday morning.? Patient has a past medical history of elevated liver enzymes hypertension and obesity.? Patient does note that he drinks a bottle of wine daily.? Notes that he started to experience abdominal pain and nausea vomiting in the a.m. attempted to use the restroom? and had? a small bowel movement patient notes that while today his pain increased he became diaphoretic.? Patient is being admitted today for pancreatitis. The patient denies SOB, CP, palpitation, extremity numbness, lightheadedness, dizziness, constipation, diarrhea, chills, or fever.?? patient is able to tolerate all his meals.? He agrees that he is ready for discharge. patient was able to discharge patient was able to tolerate his meals today he does agree that he is ready for discharge once again he was instructed to eat a bland diet taking Zofran 30 minutes before eating. Also informed him that he may still have some nausea vomiting and stay hydrated Time Spent with Patient Time attestation: Total time spent providing and/or coordinating discharge services: Exam Narrative: GENERAL: This is a well-nourished, well-developed patient, in no apparent distress. HEAD: normocephalic, atraumatic. EYES: PERRL. Sclera clear/white. Vision is grossly intact. EARS: External ears normal, auditory canals clear and without drainage, TMs normal without perforation. Hearing grossly intact. NOSE: External nose normal with no obvious nasal discharge, nares without redness, no rhinorrhea. THROAT: Mucous membranes moist, posterior pharynx clear. NECK: Neck supple, non-tender without lymphadenopathy, masses or thyromegaly. CARDIOVASCULAR: Regular rate and rhythm without murmurs, gallops, or rubs. RESPIRATORY: Clear to auscultation. Breath sounds equal bilaterally. No wheezes, rales, or rhonchi. GASTROINTESTINAL: Abdomen soft, tender in upper abd areBowel sounds are active. No hepato-splenomegaly, or palpable masses. No guarding. SKIN: warm, intact with no suspicious lesions or rash, good texture and turgor. NEURO: awake, alert, and oriented to person, place and time. There were no obvious focal neurologic abnormalities. EXTREMITIES: Normal range of motion. No edema. No calf tenderness. DS: Data Data Completed and Pending Labs on day of discharge: Labs from last 24 hours 07/13/22 04:57 Lipase 139 H Discharge Plan Discharge Attending physician on discharge: Magen Valentino Discharging Clinician: Mani Pulido Anticipated Discharge Date/Time: 07/13/22 09:51 Patient Disposition: Home, Self-Care Activity: as tolerated Diet: low sodium Discharge Instructions: Take medications as prescribed. Follow up with provider. When do I need to call the doctor? Signs of infection. These include a fever of 100.4?F (38?C) or higher, chills. Very bad belly pain Very bad upset stomach and throwing up avoid the use of alcohol WHEN TO SEEK ER EVALUATION/TREATMEN
--- NOTE | 2022-07-13 09:59 | PC.NURSE ---
IV removed in anticipation of discharge, and discharge instructions given to patient. Patient voiced understanding.
--- NOTE | 2022-07-13 10:14 | PC.NURSE ---
Patient left unit with his girlfriend walking. Patient left hospital grounds in privately owned vehicle. Personal items sent home with patient.
--- NOTE | 2022-07-15 14:36 | PC.NURSE ---
Unable to contact for discharge call back.
== END 2022-07-13 10:15 | disposition home or self-care (01) | DRG 282 ==
LOC: CHSED 23:04 → CHS2ND 23:48
PROVIDERS: Nurse Practitioner; Admitting Provider Internal Medicine; Emergency Provider Emergency Medicine; PCP Family Medicine; Visit Provider Internal Medicine
DX: K85.20 Alcohol induced acute pancreatitis without necrosis or infection (principal); F10.90 Alcohol use, unspecified, uncomplicated; I10 Essential (primary) hypertension; F10.20 Alcohol dependence, uncomplicated; F17.290 Nicotine dependence, other tobacco product, uncomplicated; F17.210 Nicotine dependence, cigarettes, uncomplicated
CPT/HCPCS: 36415; 74177; 80053; 81001; 82248; 83690; 84484; 85025; 85027; 93005; 96365; 96375; 99285; A9270; C9113; J1170; J1885; J2060; J2270; J2405; J2765; J3411; J7120; J7121; Q9967

== ENCOUNTER 2023-03-08 13:53 | Outpatient (CLI) | payer OTHER, SELFPAY ==
[2023-03-08 15:34] LABS: Alanine Aminotransferase 40 U/L (16-63); Alkaline Phosphatase 73 U/L (46-116); Anion Gap 13 mmol/L (8-16); Aspartate Amino Transferase 32 U/L (15-37); Bilirubin,Total 0.7 mg/dL (0.00-1.00); Blood Urea Nitrogen 10 mg/dL (7-18); Calcium 8.7 mg/dL (8.5-10.1); Carbon Dioxide 25 mmol/L (21-32); Chloride 97 mmol/L (98-108); Cholesterol 183 mg/dL (0-200); Estimated Glomerular Filt Rate > 60; Glucose 110 mg/dL (70-99); HDL Direct 79 mg/dL (40-60); LDL Cholesterol Calculated 93 mg/dL (<130); Osmolality Calculated 280 mOsm/kg (285-295); Potassium 4.2 mmol/L (3.5-5.1); Prostate Specific Antigen 0.9 ng/mL (< OR = 4.0); Sodium 135 mmol/L (136-145); Total Protein 7.3 g/dL (6.4-8.2); Triglycerides 54 mg/dL (0-150)
== END 2023-03-08 13:54 | disposition home or self-care (01) ==
LOC: CHSLAB 13:54
PROVIDERS: PCP Family Medicine; Visit Provider Family Medicine
DX: R06.02 Shortness of breath (principal); E78.00 Pure hypercholesterolemia, unspecified; Z12.5 Encounter for screening for malignant neoplasm of prostate
CPT/HCPCS: 36415; 80053; 80061; 84153; 93005; G0103

== ENCOUNTER 2024-02-21 12:25 | Outpatient (CLI) | payer OTHER, SELFPAY ==
--- NOTE | ~2024-02-21 | XR_ITS ---
XR shoulder LT min 2V Ordering provider: Francois Cope, History: . rotator inj X 6 weeks, limited ROM, radiates down into elbow . Comparison: None. FINDINGS: BONES: No acute fracture or dislocation. JOINT SPACES: The acromioclavicular joint is normal. The glenohumeral joint is normal. SOFT TISSUES: Normal. IMPRESSION: No acute osseous abnormality left shoulder. Reviewed, dictated and finalized at location A. EYOR INSTALLER
== END 2024-02-21 12:26 | disposition home or self-care (01) ==
LOC: CHSIMG 12:27
PROVIDERS: PCP Family Medicine; Visit Provider Family Medicine
DX: S46.002A Unspecified injury of muscle(s) and tendon(s) of the rotator cuff of left shoulder, initial encounter (principal)
CPT/HCPCS: 73030

== ENCOUNTER 2024-02-25 13:36 | Outpatient (CLI) | payer OTHER, SELFPAY ==
--- NOTE | ~2024-02-25 | XR_ITS ---
CHEST RADIOGRAPH, PA AND LATERAL CLINICAL HISTORY: preop testing . COMPARISON: None available TECHNIQUE: PA and lateral views of the chest. FINDINGS The cardiomediastinal silhouette is unremarkable. The lungs are clear. Visualized osseous structures and soft tissues are unremarkable. IMPRESSION: No focal infiltrate or effusion. Reviewed, dictated and finalized at location A. NICAL SPECIALIST
--- NOTE | 2024-02-25 14:00 | ECG_ITS ---
Test Date: 2024-02-25 14:09:32 Measurements Intervals [place] Rate: 76 P: 49 [place]: 190 QRS: 57 QRSD: 90 T: 31 QT: 368 QTc: 416 Interpretive Statements SINUS RHYTHM NONSPECIFIC T-WAVE ABNORMALITY No previous ECG available for comparison Electronically Signed On 02-28-2024 15:06:11 SALARY MANAGER by Anthony Will M.D.
[2024-02-25 14:29] LABS: Anion Gap 10 mmol/L (4-12); Blood Urea Nitrogen 18 mg/dL (7-18); Calcium 9.3 mg/dL (8.5-10.1); Carbon Dioxide 27 mmol/L (21-32); Chloride 100 mmol/L (98-108); Estimated Glomerular Filt Rate > 60; Glucose 128 mg/dL (70-99); Osmolality Calculated 287 mOsm/kg (285-295); Potassium 3.8 mmol/L (3.5-5.1); Sodium 137 mmol/L (136-145)
== END 2024-02-25 13:37 | disposition home or self-care (01) ==
LOC: CHSLAB 13:42
PROVIDERS: PCP Family Medicine; Visit Provider Family Medicine
DX: Z01.818 Encounter for other preprocedural examination (principal)
CPT/HCPCS: 36415; 71046; 80048; 93005

== ENCOUNTER 2024-03-25 09:55 | Outpatient (CLI) | payer OTHER, SELFPAY ==
--- NOTE | ~2024-03-25 | MR_ITS ---
EXAMINATION: MR shoulder LT wo con DATE: 03/25/2024 10:38 INDICATION: Left shoulder pain. TECHNIQUE: Magnetic resonance imaging (MRI) of the left shoulder was performed without intravenous co ntrast. Sequences included axial PD-weighted FS FSE, coronal oblique PD-weighted FS FSE and T2-weight ed FS FSE, and sagittal oblique T2-weighted FS FSE and T1-weighted FSE. COMPARISON: Left shoulder radiographs 02/21/2024 FINDINGS: Coracoacromial arch: The acromion undersurface is curved in morphology (type II). There is moderate acromioclavicular join t osteoarthritis. There is mild subacromial/subdeltoid bursitis. Rotator cuff: There is a near full-thickness bursal sided tear of supraspinatus tendon measuring 17 mm anterior to posterior by 7 mm proximal to distal. There is mild infraspinatus tendinopathy. Teres minor tendon is normal. There is mild subscapularis tendinopathy. There is no asymmetric fatty atrophy of the rotato r cuff muscle bellies. Biceps tendon and glenoid labrum: Biceps tendon is in bicipital groove. Intra-articular biceps tendon is normal. There is a tear of sup erior labrum from 11:00 to 12:00 (SLAP tear). Fluid: There is no glenohumeral joint effusion. Bones/cartilage: The humeral head cartilage is normal. Glenoid cartilage is normal. IMPRESSION: 1. Near full-thickness, bursal-sided tear of supraspinatus tendon. 2. Moderate acromioclavicular joint osteoarthritis. 3. Mild subacromial/subdeltoid bursitis. 4. SLAP tear. Reviewed, dictated and finalized at location A. OR COMMISSIONS ANALYST
--- OUTSIDE RECORDS SUMMARY | 2024-03-25 09:58 | XMS_ITS ---
Author Organization Unknown Address [address] [place], [place] [id number] Phone Care Team Providers Care Sprinkler Worker Name Role Phone SHRUTI Aguila Attending Unavailable CHERIE Stevens Primary Unavailable Immunization Immunization Date Status Additional Notes Code Code System COVID-19, mRNA, LNP-S, PF, 3 0 mcg/0.3 mL dose 10/12/2020 Completed 208 CVX COVID-19, mRNA, LNP-S, PF, 3 0 mcg/0.3 mL dose 11/02/2020 Completed 208 CVX Results FOOT 3V RIGHT - Completed: 0 05/17/2023 15:38 LOINC: EXAM DESCRIPTION: FOOT 3V RIGHT REASON FOR STUDY: follow up bunion surgery/ stiffness right ankle Duration: 7 weeks TECHNIQUE: Three views right foot. COMPARISON: 03/01/2023. FINDINGS: Postsurgical changes are seen from an osteotomy and bunionectomy, with reconstruction plate and screws transfixing the site of the osteotomy of the first metatarsal and proximal phalanx. Decreased degree of hallux valgus. There are 2 surgical screws noted of the second metatarsal head neck. Plantar calcaneal spur is seen. Dorsal soft tissue swelling of the foot is seen. IMPRESSION: ? ? Postsurgical changes of the first metatarsal and proximal phalanx with reconstruction plate and screws. ? ? Postsurgical changes of the second metatarsal head neck. ? ? Dorsal soft tissue swelling. THIS IS AN ELECTRONICALLY VERIFIED FINAL REPORT 05/18/2023 10:57 AM - Electronically signed by Clement Tate M.D. CH: [facility] Report ID: [id number] Reading Location: [id number] Social History Type Status Start Date End Date Code Code Syst em Smoking History Former smoker [id number] SNOMED CT Sex Male Hospital Discharge Instructions Should you have any questions prior to discharge, please contact a member of your healthcare team. If you have left the hospital and have any questions, please contact your primary care physician. Reason For Referral No Data Found Plan of Treatment No Data Found Encounters Encounter Diagnosis Start Date Code Code Sys tem Postprocedural state finding 05/17/2023 [id number] SNOMED-CT Personal Care Team Section Performer Name Performer Role Active Date Inactive Da te Imaging Narrative Notes
--- OUTSIDE RECORDS SUMMARY | 2024-03-25 09:58 | XMS_ITS | Clinical Summary ---
Author Organization [facility] Address [address] [place] [address]. [place] [address] [place] [address] Care Team Providers Care Cushion Gum Applicator Name Role Phone Francois Cope MD Primary Care Provider Allergies No known active allergies Medications losartan 100 MG tablet Take 100 mg by mouth daily. Active buPROPion XL 300 MG 24 hr tablet Take 300 mg by mouth daily. Active metoprolol succinate ER 100 MG 24 hr tablet Take 100 mg by mouth daily. Active omeprazole 40 MG capsule Take 40 mg by mouth daily. 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 Gender Identity Not on file Sexual Orientation Not on file Last Filed Vital Signs Vital Sign Reading Time Taken Comments Blood Pressure 163/104 05/03/2019 8:30 PM CDT Pulse 93 05/03/2019 6:42 PM CDT Temperature 36.9 ??C (98.4 ??F) 05/03/2019 6:42 PM CD T Respiratory Rate 16 05/03/2019 6:42 PM CDT Oxygen Saturation 96% 05/03/2019 8:30 PM CDT Inhaled Oxygen Concentration - - Weight 99.8 kg (220 lb) 05/03/2019 6:42 PM CDT Height 182.9 cm (6') 05/03/2019 6:42 PM CDT Body Mass Index 29.84 05/03/2019 6:42 PM CDT Plan of Treatment Health Maintenance Due Date Last Done Comments Colorectal Cancer Screening Colonoscopy (10 Years) 1971 Annual Physical 1974 Pneumococcal Vaccine: Pediatrics (0 to 5 Years) and At-Risk Patients (6 to 64 Years) (1 of 2 - PCV) 1977 Hepatitis C 1989 DTaP, Tdap and Td Vaccines ( 1 - Tdap) 1990 Hepatitis B Vaccines (1 of 3 - 19+ 3-dose series) 1990 Zoster Vaccines (1 of 2) 2021 COVID-19 Vaccine (3 - 2023-2 5 season) 2023 11/02/2020, 10/12/2020 Influenza Adult (#1) 2023 Meningococcal B Vaccine Aged Out No l onger eligible based on patient's age to complete this topic Meningococcal Vaccine Aged Out No iman braulio eligible based on patient's age to complete this topic RSV Immunizations Under 20 Months Aged Out No longer eligible b ased on patient's age to complete this topic Insurance [facility] Care Teams Cushion Gum Applicator Relationship Specialty Start Date End Date Francois Cope MD [address] [place] [phone] PCP - General FAMILY PRACTICE 08/12/18
--- OUTSIDE RECORDS SUMMARY | 2024-03-25 09:58 | XMS_ITS ---
Author Organization Unknown Address [address] [place], [place] [id number] Phone Care Team Providers Care Maintenance Mechanic Millwright Name Role Phone SHRUTI Aguila Attending Unavailable CHERIE Stevens Primary Unavailable Immunization Immunization Date Status Additional Notes Code Code System COVID-19, mRNA, LNP-S, PF, 3 0 mcg/0.3 mL dose 10/12/2020 Completed 208 CVX COVID-19, mRNA, LNP-S, PF, 3 0 mcg/0.3 mL dose 11/02/2020 Completed 208 CVX Results FOOT 2V LEFT - Completed: 14:37 LOINC: EXAM DESCRIPTION: ? ? FOOT 2V RIGHT; ? ? FOOT 2V LEFT REASON FOR STUDY: hallux valgus deformities bilateral feet/ bilateral foot pain/ chronic/ hx of foot fractures several years ago Duration: chronic 2 years FINDINGS: Two views each foot weight-bearing submitted without comparison. Right foot: No acute fractures are identified. There is [id number] right pes planovalgus. Tiny plantar heel spur is present. There is mild hallux valgus with mild 1st metatarsophalangeal joint osteoarthritis and a bunion deformity. Left foot: No acute fractures are identified. There is mild pes planovalgus. There is mild hallux valgus with 1st metatarsophalangeal joint osteoarthritis and a bunion deformity. Plantar heel spur is present. IMPRESSION: ? ? 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 ? ? Mild left and mild to moderate right bilateral pes planovalgus. THIS IS AN ELECTRONICALLY VERIFIED FINAL REPORT 2023 3:23 PM - Electronically signed by Abimael Moss M.D. MF: [email or web address] Report ID: [id number] Reading Location: [id number] FOOT 2V RIGHT - Completed: 0 03/01/2023 14:37 LOINC: EXAM DESCRIPTION: ? ? FOOT 2V RIGHT; ? ? FOOT 2V LEFT REASON FOR STUDY: hallux valgus deformities bilateral feet/ bilateral foot pain/ chronic/ hx of foot fractures several years ago Duration: chronic 2 years FINDINGS: Two views each foot weight-bearing submitted without comparison. Right foot: No acute fractures are identified. There is [id number] right pes planovalgus. Tiny plantar heel spur is present. There is mild hallux valgus with mild 1st metatarsophalangeal joint osteoarthritis and a bunion deformity. Left foot: No acute fractures are identified. There is mild pes planovalgus. There is mild hallux valgus with 1st metatarsophalangeal joint osteoarthritis and a bunion deformity. Plantar heel spur is present. IMPRESSION: ? ? 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 ? ? Mild left and mild to moderate right bilateral pes planovalgus. THIS IS AN ELECTRONICALLY VERIFIED FINAL REPORT 2023 3:23 PM - Electronically signed by Abimael Moss M.D. MF: [email or web address] Report ID: [id number] Reading Location: [id number] Social History Type Status Start Date End Date Code Code Syst em Smoking History Former smoker [id number] SNOMED CT Sex Male Hospital Discharge Instructions Should you have any questions prior to discharge, please contact a member of your healthcare team. If you have left the hospital and have any questions, please contact your primary care physician. Reason For Referral No Data Found Plan of Treatment No Data Found Encounters Encounter Diagnosis Start Date Code Code Sys tem Hallux valgus (acquired), right foot 03/01/2023 SNOMED-CT Personal Care Team Section Performer Name Performer Role Active Date Inactive Da te Imaging Narrative Notes
--- OUTSIDE RECORDS SUMMARY | 2024-03-25 09:58 | XMS_ITS | Encounter Summary ---
Author Organization [facility] - [facility] Address [address] [place] [address]. 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
--- OUTSIDE RECORDS SUMMARY | 2024-03-25 09:58 | XMS_ITS | Clinical Summary ---
Author Organization [facility] Address [address] [place] [address] Phone Care Team Providers Care Nail Puller Name Role Phone Francois Cope MD Primary Care Provider [phone] Social History Tobacco Use Types Packs/Day Years Used Date Smoking Tobacco: Never Assessed Sex and Gender Information Value Date Recorded Sex Assigned at Not on file Legal Sex Male 3:18 PM CDT Gender Identity Not on file Sexual Orientation Not on file Plan of Treatment Health Maintenance Due Date Last Done Comments Hepatitis C Virus (HCV) Screening 1971 TdaP Immunization 1971 Hepatitis B Immunization (1 of 3 - 19+ 3-dose series) 1990 Colonoscopy 2016 Colorectal Cancer Screening 2016 Cologuard 2021 Immunochemical Fecal Occult Blood 2021 Pneumococcal Immunization (5 0+ years) (1 of 1 - PCV) 2021 Zoster Immunization (1 of 2) 2021 Influenza Immunization (#1) 2023 SARS-COV-2 Immunization ( season) 2023 11/02/2020, 10/12/2020 Respiratory Syncytial Virus (RSV) Immunization (Adult) (1 - 1-dose 75+ series) 2046 Meningococcal Immunization (ACWY) Aged Out No longer eligible b ased on patient's age to complete this topic Pneumococcal Immunization Combined Aged Out No longer eligible b ased on patient's age to complete this topic Rotavirus Immunization Aged Out No lo nger eligible based on patient's age to complete this topic Insurance MEDICAID [employer] Care Teams Nail Puller Relationship Specialty Start Date End Date Francois Cope MD [address] [place] [address] PCP - General Family Medicine 09/02/21
== END 2024-03-25 09:56 | disposition home or self-care (01) ==
PROVIDERS: PCP Family Medicine; Visit Provider Family Medicine
DX: S49.92XS Unspecified injury of left shoulder and upper arm, sequela (principal)
CPT/HCPCS: 73221

== ENCOUNTER 2024-08-02 13:42 | Outpatient (RCR) | payer OTHER, SELFPAY ==
--- NOTE | 2024-08-02 15:12 | OPREHPOC ---
Outpatient Therapy Plan of Care This is a Multidisciplinary Plan of Care that may contain components documented by all disciplines (PT, OT, and ST.) PT Problem 1 PT Problem #1 Knowledge Deficit PT Goal 1 Goal / Goal Update Be independent in HEP Target Visit 5 PT Problem 2 PT Problem #2 Impaired Functional Mobility PT Goal 1 Goal / Goal Update pt to report 60% or less functional deficits on the quick DASH Target Visit 10 PT Problem 3 PT Problem #3 Impaired Range of Motion PT Goal 1 Goal / Goal Update pt to have 140 degrees or more of L passive GH flex pt to have 40 degrees or more of L passive GH ER pt to have 80 degrees or more of L passive GH abd Target Visit 10
--- NOTE | 2024-08-02 15:12 | PTOPEVAL1 ---
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 Pt denies having any special protocol p/o. Pt reports that he has started home exercises already. Pt reports he took his pain medicine an hour before the visit. Pt reports that he sleeps in the recliner some nights and in his bed others. patient is not using the abduction pillow with his sling. Reported Pain Level Pain Score 6: Self Report Assessment PT Clinical Summary Mr. Triplett is a 54 y/o male p/o L RC repair on . Pt has deficits in ROM and strength p/o. Pt would benefit from skilled PT to safely improve deficits and return to his PLOF before the surgery . pt is limited to passive ROM of the L shoulder for another 5 weeks per his p/o protocol. Plan of Care Interventions Electrical Stimulation,Hot Pack/Cold Pack,Neuro Re -education,Patient/Caregiver Education,Therapeutic Activities,Therapeutic Exercise PT Services Indicated Yes Treatment Frequency and 2x a week for 10 visits Duration These treatments will address the objective and functional deficits as defined above. The patient will be advanced safely and appropriately in order for the patient to progress towards his/her prior level of function. Additional exercises will be introduced and as well as a comprehensive home exercise program upon discharge, if needed, ?to ensure carryover of functional gains achieved in the clinic. This treatment plan has been reviewed and agreement upon by the patient.
--- NOTE | 2024-08-18 11:13 | PCPTNOTE ---
Patient called & cancelled scheduled appointment this date due to lack of transportation. -Yanira Roca, PT
--- NOTE | 2024-08-29 13:16 | PCPTNOTE ---
Patient called & cancelled scheduled appointment this date due to patient unable to make it in. -Yanira Roca, PT
--- NOTE | 2024-09-07 17:10 | PCPTNOTE ---
Patient called & cancelled scheduled appointment this date.
--- NOTE | 2024-09-12 08:38 | PCPTNOTE ---
Patient called & cancelled scheduled appointment this date.
--- NOTE | 2024-09-26 14:55 | PTOPREEVAL ---
Assessment and note entered by Rachel Cuadra DPT Evaluation Information Assessment Status Re-evaluation Diagnosis L Rotator cuff repair Other ICD-10 Condition Codes ( Z98.890 PT) Onset 07/26/24 Subjective Information Patient reports he got good and bad news at the MD . He reports his RTC is healing appropriately but he has torn the bicep. He reports he is having a lot of pain throughout the bicep region. He reports MD wants to let the RTC heal completely before deciding next actions. He reports any reaching overhead and lifting objects. He reports he returns to MD on 11/03. Reported Pain Level Pain Score 4: Self Report Assessment PT Clinical Summary Mr. Triplett has attended 8 visits of skilled PT. He has progressed appropriately at this time but does presents with positive L Tai sign indicating probable bicep tear. He demonstrates good mechanics with active ROM of the L shoulder but continues to demonstrate lack of end range motion and strength. He has difficulty with reaching over head and lifting for house hold tasks and would benefit from continued skilled PT to address remaining impairments and return to OF. Plan of Care Interventions Electrical Stimulation,Hot Pack/Cold Pack,Neuro Re -education,Patient/Caregiver Education,Therapeutic Activities,Therapeutic Exercise PT Services Indicated Yes Treatment Frequency and continue 2x week for 10 additional visits Duration These treatments will address the objective and functional deficits as defined above. The patient will be advanced safely and appropriately in order for the patient to progress towards his/her prior level of function. Additional exercises will be introduced and as well as a comprehensive home exercise program upon discharge, if needed, ?to ensure carryover of functional gains achieved in the clinic. This treatment plan has been reviewed and agreement upon by the patient.
--- NOTE | 2024-09-28 14:28 | PCPTNOTE ---
Pt cancelled session. Reports he is not going to make it today and will call back to reschedule.
--- NOTE | 2024-10-12 13:06 | PCPTNOTE ---
Pt cancelled session. No reason given.
== END 2024-10-31 23:59 | disposition home or self-care (01) ==
LOC: CHSPT 13:42
PROVIDERS: PCP Family Medicine; Visit Provider Orthopaedic Surgery
DX: Z48.89 Encounter for other specified surgical aftercare (principal); Z98.890 Other specified postprocedural states
CPT/HCPCS: 97014; 97110; 97161; G0283